=== PATIENT | female | born 1955 | race Caucasian/White ===

== ENCOUNTER 2018-05-16 08:30 | Day surgery (SDC) | payer OTHER ==
[~2018-05-16] VITALS: Ht 152.4 cm; Wt 60.3 kg
[2018-05-16] MEDS ORDERED: TAP5 PO (09:16)
[2018-05-16] MEDS ORDERED: BACL10TA4 PO (09:16)
[2018-05-16] MEDS ORDERED: BENA40TA PO (09:16)
[2018-05-16] MEDS ORDERED: KETOROLAC 30 MG/ML VIAL ONE (13:32)
[2018-05-16] MEDS ORDERED: LIDOCAINE 2% 100 MG/5 ML UJET TP ONE (13:32)
== END 2018-05-16 14:50 | disposition home or self-care (01) ==
LOC: MDS 08:30 → MMU 08:30 → MDS 14:50
PROVIDERS: ATTEND Internal Medicine Gastroenterology
DX: Z12.11 Encounter for screening for malignant neoplasm of colon (principal); K57.30 Diverticulosis of large intestine without perforation or abscess without bleeding; I10 Essential (primary) hypertension; Z79.899 Other long term (current) drug therapy; E66.3 Overweight; Z68.25 Body mass index [BMI] 25.0-25.9, adult
CPT/HCPCS: 45378; J1885; J7030